=== PATIENT | female | born 1990 | race African-American/Black ===

== ENCOUNTER → 2019-05-01 | Outpatient (CLI) | payer SELFPAY ==
--- NOTE | 2019-05-01 17:15 | RADIOLOGY REPORT (SQ) ---
EXAM DESCRIPTION: U/S OB 14+ TRNABD 1GES W/O DOP COMPLETED DATE/TIME: 05/01/2019 3:41 pm REASON FOR STUDY: Z34.82 ENCOUNTER FOR SUPRVSN OF NORMAL , SECOND TRIMESTER Z34.82 ENCOUNT ER FOR SUPRVSN OF NORMAL , SECOND TRI COMPARISON: None. TECHNIQUE: Static and Dynamic grayscale imaging performed of gravid uterus using transabdominal appr oach. Additional selected color Doppler and spectral images recorded. All stored on PACS. LIMITATIONS: Limited exam due to positioning. FINDINGS: FETUSES SEEN:1 EGA: 19 weeks 5 days Calculated using BPD,FL,HC,AC documented on images. No discrepancy with clinica l dates. ROSARIO: 09/20/2019 EFW: 308 grams PERCENTILE: 24 persist YOANDY: 5.5 cm LVP PLACENTA: Fundal. PRESENTATION: Breech. ANATOMY: HEART RATE: 158 beats per minute. FOUR CHAMBER HEART: Visualized. THREE VESSEL CORD: Yes. CORD INSERTION: Visualized. KIDNEYS AND BLADDER: Visualized. Appear normal. STOMACH: Visualized. Appears normal. SPINE: Limited visualization. BRAIN AND LATERAL VENTRICLES: Visualized. Appear normal. OTHER: No other significant finding. MATERNAL ADNEXA: Maternal ovaries not visualized. CERVICAL LENGTH: 3.4 cm Closed. OTHER: No other significant finding. IMPRESSION: LIVING INTRAUTERINE . ESTIMATED GESTATIONAL AGE: 19 weeks 5 days NO VISUALIZED ANOMALIES. Trimester of : Second trimester - 13 weeks 1 day to 27 weeks 6 days. TECHNICAL DOCUMENTATION: JOB ID: [id number] [employer]- All Rights Reserved Reading location - IP/workstation name: [email or web address]
== END ==
LOC: RAD 14:50 → MERGE 15:00
PROVIDERS: ATTEND Midwife
DX: Z34.82 Encounter for supervision of other normal pregnancy, second trimester (principal); Z3A.19 19 weeks gestation of pregnancy
CPT/HCPCS: 76805

== ENCOUNTER 2019-08-10 14:33 | Outpatient (CLI) | payer MEDICAID ==
[2019-08-10 15:09] LABS: APPEARANCE,URINE SLIGHTLY-CLOUDY; BILIRUBIN,URINE NEGATIVE (NEGATIVE); COLOR,URINE YELLOW; GLUCOSE, URINE NEGATIVE (NEGATIVE); KETONES,URINE TRACE mg/dL (NEGATIVE); LEUKOCYTE ESTERASE,URINE MODERATE (NEGATIVE); NITRITE,URINE NEGATIVE (NEGATIVE); PROTEIN,URINE NEGATIVE (NEGATIVE); URINE SPECIFIC GRAVITY 1.014; UROBILINOGEN,URINE NEGATIVE mg/dL (<2.0)
[2019-08-10 15:18] LABS: URINE AMPHETAMINES SCREEN NEGATIVE; URINE BARBITURATES SCREEN NEGATIVE; URINE BENZODIAZEPINES SCREEN NEGATIVE; URINE COCAINE SCREEN NEGATIVE; URINE MARIJUANA (THC) SCREEN NEGATIVE; URINE METHADONE SCREEN NEGATIVE; URINE PHENCYCLIDINE SCREEN NEGATIVE
[2019-08-10 15:48] LABS: HEMATOCRIT 31.9 % (36.0-47.0); HEMOGLOBIN 10.8 g/dL (12.0-15.5); MEAN CORPUSCULAR HEMOGLOBIN 27.3 pg (27.0-33.4); MEAN CORPUSCULAR HGB CONC 33.8 g/dL (32.0-36.0); MEAN CORPUSCULAR VOLUME 81 fl (80-97); PLATELET COUNT 239 10^3/uL (150-450); RED BLOOD COUNT 3.94 10^6/uL (3.72-5.28); RED CELL DISTRIBUTION WIDTH 14.3 % (11.5-14.0); WHITE BLOOD COUNT 9.4 10^3/uL (4.0-10.5)
[2019-08-10 16:05] LABS: ALBUMIN 3.4 g/dL (3.5-5.0); ALKALINE PHOSPHATASE 105 U/L (38-126); ANION GAP 10 (5-19); ASPARTATE AMINO TRANSFERASE 22 U/L (14-36); BILIRUBIN,DIRECT 0.1 mg/dL (0.0-0.4); BILIRUBIN,TOTAL 0.8 mg/dL (0.2-1.3); BLOOD UREA NITROGEN 9 mg/dL (7-20); CALCIUM 9.2 mg/dL (8.4-10.2); CARBON DIOXIDE 24 mmol/L (22-30); CHLORIDE 104 mmol/L (98-107); POTASSIUM 3.9 mmol/L (3.6-5.0); TOTAL PROTEIN 6.8 g/dL (6.3-8.2)
[2019-08-10] MEDS ORDERED: ACETAMINOPHEN 325 MG TABLET PO PRN (16:09)
[2019-08-10] MEDS ORDERED: ACETAMINOPHEN 325 MG TABLET ONE (16:10)
[2019-08-10 16:11] LABS: GLUCOSE 68 mg/dL (75-110)
[2019-08-10 18:00] LABS: UR PRO/CREAT RATIO RESULT 0.1 mg/mg (0.0-0.2); URINE CREATININE 107.6 mg/dL (16-327); URINE PROTEIN 10.4 mg/dL (<12)
== END 2019-08-10 16:38 | disposition home or self-care (01) ==
LOC: LC 14:33
PROVIDERS: ATTEND Obstetrics & Gynecology
PROC: 4A1HXCZ Monitoring of Products of Conception, Cardiac Rate, External Approach (ICD-10-PCS; principal; 2019-08-10)
DX: O14.93 Unspecified pre-eclampsia, third trimester (principal); Z3A.33 33 weeks gestation of pregnancy
CPT/HCPCS: 59025; 36415; 83615; 84156; 82570; 85027; 80053; 81001; 80307; J3490

== ENCOUNTER 2019-09-11 16:42 | Inpatient (IN) | payer MEDICAID ==
[2019-09-11 18:13] LABS: APPEARANCE,URINE SLIGHTLY-CLOUDY; BILIRUBIN,URINE NEGATIVE (NEGATIVE); COLOR,URINE YELLOW; GLUCOSE, URINE NEGATIVE (NEGATIVE); KETONES,URINE 20 mg/dL (NEGATIVE); LEUKOCYTE ESTERASE,URINE TRACE (NEGATIVE); NITRITE,URINE NEGATIVE (NEGATIVE); PROTEIN,URINE 30 mg/dL (NEGATIVE); URINE SPECIFIC GRAVITY 1.011; UROBILINOGEN,URINE NEGATIVE mg/dL (<2.0)
[2019-09-11 18:17] LABS: HEMATOCRIT 34.3 % (36.0-47.0); HEMOGLOBIN 11.6 g/dL (12.0-15.5); MEAN CORPUSCULAR HEMOGLOBIN 28.4 pg (27.0-33.4); MEAN CORPUSCULAR HGB CONC 33.9 g/dL (32.0-36.0); MEAN CORPUSCULAR VOLUME 84 fl (80-97); PLATELET COUNT 223 10^3/uL (150-450); RED CELL DISTRIBUTION WIDTH 18.1 % (11.5-14.0); WHITE BLOOD COUNT 9.4 10^3/uL (4.0-10.5)
[2019-09-11 18:36] LABS: ALBUMIN 3.1 g/dL (3.5-5.0); ALKALINE PHOSPHATASE 132 U/L (38-126); ANION GAP 9 (5-19); ASPARTATE AMINO TRANSFERASE 19 U/L (14-36); BILIRUBIN,DIRECT 0.2 mg/dL (0.0-0.4); BILIRUBIN,TOTAL 0.6 mg/dL (0.2-1.3); BLOOD UREA NITROGEN 6 mg/dL (7-20); CALCIUM 9.2 mg/dL (8.4-10.2); CARBON DIOXIDE 23 mmol/L (22-30); CHLORIDE 104 mmol/L (98-107); GLUCOSE 96 mg/dL (75-110); POTASSIUM 3.9 mmol/L (3.6-5.0); TOTAL PROTEIN 6.2 g/dL (6.3-8.2); URIC ACID 4.8 mg/dL (2.5-6.2)
[2019-09-11 18:51] LABS: URINE AMPHETAMINES SCREEN NEGATIVE; URINE BARBITURATES SCREEN NEGATIVE; URINE BENZODIAZEPINES SCREEN NEGATIVE; URINE COCAINE SCREEN NEGATIVE; URINE MARIJUANA (THC) SCREEN NEGATIVE; URINE METHADONE SCREEN NEGATIVE; URINE PHENCYCLIDINE SCREEN NEGATIVE
[2019-09-11] MEDS ORDERED: RINGERS SOLUTION,LACTATED 1,000 ML IV ONE (19:28)
[2019-09-11] MEDS ORDERED: ACETAMINOPHEN 325 MG TABLET PO PRN (19:29)
[2019-09-11] MEDS ORDERED: MAG HYDROX/AL HYDROX/SIMETH SUSP 30 ML UDCUP PO PRN (19:29)
[2019-09-11] MEDS ORDERED: DINOPROSTONE 10 MG VAGINAL INSERT.SR PV ONE (19:29)
[2019-09-11] MEDS ORDERED: ZOLPIDEM TARTRATE 5 MG TABLET PO PRN (19:29)
[2019-09-11 19:38] LABS: UR PRO/CREAT RATIO RESULT 0.3 mg/mg (0.0-0.2); URINE CREATININE 83.3 mg/dL (16-327); URINE PROTEIN 23.3 mg/dL (<12)
[2019-09-11] MEDS ORDERED: HYDRALAZINE HCL INJ/PF 20 MG/1 ML SDV ONE (20:04)
[2019-09-11] MEDS ORDERED: LABETALOL HCL 200 MG TABLET PO ONE (20:06)
[2019-09-11] MEDS ORDERED: HYDRALAZINE HCL INJ/PF 20 MG/1 ML SDV IV ONE ×2 (20:07→21:25)
[2019-09-11] MEDS ORDERED: LABETALOL HCL 200 MG TABLET ONE (20:09)
[2019-09-11] MEDS ORDERED: DINOPROSTONE 10 MG VAGINAL INSERT.SR ONE (20:38)
[2019-09-12] MEDS: RINGERS SOLUTION,LACTATED 1,000 ML IV PRN ×2 (01:20→14:20)
--- NOTE | 2019-09-12 06:47 | Admission Physical ---
Datetime Report Generated by CPN: 09/12/2019 06:47 CURRENT ADMISSION Chief Complaint: Signs/Symptoms Gestational HTN Indication for Induction: Eclampsia-Mild Admit Impression : Term, Intrauterine ; No Active Labor; Intact Membranes; Induction of Labor Admit Plan: Admit to Unit; Initiate Labor Induction Protocol ALLERGIES Medication Allergies: No Medication Allergies: passion fruit (09/11/2019) Latex: No Latex Allergies Food Allergies: passion fruit OBSTETRICAL HISTORY EDC: 09/24/2019 00:00 : 2 Para: 1 Term: 1 : 0 SAB: 0 IAB: 0 Ectopic: 0 Livin Cesareans: 0 VBACs: 0 Multiple Births: 0 Gestational Diabetes: No Rh Sensitization: No Incompetent Cervix: No ESPERANZA: No Infertility: No ART Treatment: No Uterine Anomaly: No IUGR: No Hx Previous C/S: No Macrosomia: No Hx Loss/Stillborn: No PIH: No Hx : No Placenta Previa/Abruption: No Depression/PP Depression: No PTL/PROM: No Post Hemorrhage: No Current Procedures: Ultrasound; NST Obstetrical History Comments: G1- 38 weeks, nvd, developed pre-eclampsia day of induction; GDM SEE RECORDS Alcohol: No Marijuana : No Cocaine: No Other Illicit Drugs: No Cigarettes: Former Smoker. [id number] MEDICAL HISTORY Diabetes: No Diabetes Type: Gestational Diabetes Blood Transfusion: No Pulmonary Disease (Asthma, TB): No Breast Disease: No Hypertension: No Quality Control Manager Surgery: No Heart Disease: No Hosp/Surgery: Yes Autoimmune Disorder: No Anesthetic Complications: No Kidney Disease: No Abnormal Pap Smear: No Neuro/Epilepsy: No Psychiatric Disorders: No Other Medical Diseases: No Hepatitis/Liver Disease: No Significant Family History: No Varicosities/Phlebitis: No Trauma/Violence : No Thyroid Dysfunction: No Medical History Comments: anxiety disorder, sickle cell trait, 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 INFECTIOUS HISTORY Gonorrhea: No Genital Herpes: Yes Chlamydia: No Tuberculosis: No Syphilis: No Hepatitis: No HIV/AIDS Exposure: No Rash or Viral Illness: No HPV: No Infectious History Comments: pt states she has HSV, last outbreak 4 years ago, on valtrex PHYSICAL EXAM General: Normal HEENT: Normal Neurologic: Normal Thyroid: Deferred Heart: Normal Lungs: Normal Breast: Deferred Back: Normal Abdomen: Normal Genitourinary Exam: Normal Extremities: Normal DTRs: Normal Pelvic Type: Adequate Physical Exam Comments: pelvis proven to 7#2oz Vital Signs: Reviewed VAGINAL EXAM Dilatation: 0 Effacement: 0 Station: -3 Contraction Comments: q 3 MEMBRANES Membranes: Intact FETUS A EGA: 38.2 Monitoring: External US FHR- Baseline: 130 Variability: Moderate 6-25bpm Accelerations: 15X15 Decelerations: None FHR Category: Category I Presentation: Vertex Admit Comment: 29yo at 38+2ega presents for elevated BPs. She is noted tohave several severe range BPs and required treatment. Urine Pr:cr ratio 0.3. H/o preEW with 1st . Hypothyroid - no meds. H/o HSV on Valtrex since 34 wks. She reports outbreaks usually occur on leg. No prodrome and no lesion reported. Will perform SSE once cervidil removed. 24 hr UTP 08/15 was 384mg. occured on paragard - removed early . Admit for cervidil. Anticipate . PLANS FOR LABOR AND DELIVERY Labor and Delivery: None Pain Management: Natural Feeding Preference: Breast Benefit of Breast Feed Discussed: Yes Circumcision: N/A INFORMED CONSENT Informed Consent Obtained: Vaginal Delivery; Induction of Labor; Risks, Benefits and Alternatives Discussed Signature: with User ID: [email or web address]
[2019-09-12 07:36] LABS: HEMATOCRIT 33.7 % (36.0-47.0); HEMOGLOBIN 11.5 g/dL (12.0-15.5); MEAN CORPUSCULAR HEMOGLOBIN 28.3 pg (27.0-33.4); MEAN CORPUSCULAR HGB CONC 34.1 g/dL (32.0-36.0); MEAN CORPUSCULAR VOLUME 83 fl (80-97); PLATELET COUNT 199 10^3/uL (150-450); RED BLOOD COUNT 4.06 10^6/uL (3.72-5.28); RED CELL DISTRIBUTION WIDTH 18.6 % (11.5-14.0); WHITE BLOOD COUNT 8.5 10^3/uL (4.0-10.5)
[2019-09-12 08:02] LABS: ALBUMIN 2.9 g/dL (3.5-5.0); ALKALINE PHOSPHATASE 128 U/L (38-126); ANION GAP 8 (5-19); ASPARTATE AMINO TRANSFERASE 15 U/L (14-36); BILIRUBIN,TOTAL 0.6 mg/dL (0.2-1.3); BLOOD UREA NITROGEN 3 mg/dL (7-20); CALCIUM 8.8 mg/dL (8.4-10.2); CARBON DIOXIDE 21 mmol/L (22-30); CHLORIDE 107 mmol/L (98-107); POTASSIUM 3.7 mmol/L (3.6-5.0); TOTAL PROTEIN 5.5 g/dL (6.3-8.2); URIC ACID 4.6 mg/dL (2.5-6.2)
[2019-09-12 08:06] LABS: GLUCOSE 64 mg/dL (75-110)
[2019-09-12] MEDS ORDERED: OXYTOCIN/NORMAL SALINE 20 UNIT/1,000 ML RTUINJ IV PRN ×2 (09:54→21:13)
[2019-09-12] MEDS ORDERED: OXYTOCIN/NORMAL SALINE 20 UNIT/1,000 ML RTUINJ ONE (10:36)
[2019-09-12] MEDS ORDERED: OXYTOCIN 10 UNIT/ML VIAL ONE (10:36)
[2019-09-12] MEDS ORDERED: MISOPROSTOL 0.2 MG TABLET ONE (10:36)
[2019-09-12] MEDS ORDERED: LIDOCAINE 1% INJ-PF (10 MG/ML) 30 ML SDV ONE (10:36)
[2019-09-12] MEDS ORDERED: LABETALOL HCL 200 MG TABLET ONE (11:16)
[2019-09-12] MEDS ORDERED: HYDROMORPHONE HCL 2 MG TABLET ONE (20:42)
[2019-09-12] MEDS ORDERED: HYDROMORPHONE HCL INJ/PF 2 MG/ML AMPULE ONE (20:42)
[2019-09-12] MEDS ORDERED: GLYCERIN/WITCH HAZEL LEAF 1 EACH MED..WIPE TP PRN (21:13)
[2019-09-12] MEDS ORDERED: ACETAMINOPHEN WITH CODEINE #3 TABLET PO PRN ×2 (21:13)
[2019-09-12] MEDS ORDERED: BENZOCAINE/MENTHOL AEROSOL SPRAY 56 ML TOP PRN (21:13)
[2019-09-12] MEDS ORDERED: PSEUDOEPHEDRINE HCL 30 MG TABLET PO PRN (21:13)
[2019-09-12] MEDS ORDERED: PROMETHAZINE HCL 25 MG SUPP.RECT PR PRN (21:13)
[2019-09-12] MEDS ORDERED: DIPHENHYDRAMINE HCL 25 MG CAPSULE PO PRN (21:13)
[2019-09-12] MEDS ORDERED: MEASLES,MUMPS&RUBELLA VACC/PF 0.5 ML VIAL SUBCUT PRN (21:13)
[2019-09-12] MEDS ORDERED: ACETAMINOPHEN 650 MG SUPP.RECT PR PRN (21:13)
[2019-09-12] MEDS ORDERED: PROMETHAZINE HCL 25 MG TABLET PO PRN (21:13)
[2019-09-12] MEDS ORDERED: DIPH/PERTUSS(ACELL)/TETANUS VAC/PF 0.5 ML SYR (>=10YO) IM PRN (21:13)
[2019-09-12] MEDS ORDERED: MAGNESIUM HYDROXIDE SUSP 30 ML UDCUP PO PRN (21:13)
[2019-09-12] MEDS ORDERED: ZOLPIDEM TARTRATE 5 MG TABLET PO PRN (21:13)
[2019-09-12] MEDS ORDERED: NA PHOS,M-B/NA PHOS,DI-BA (ADULT) 133 ML ENEMA PR PRN (21:13)
[2019-09-12] MEDS ORDERED: DIBUCAINE 1% OINTMENT 28 GM TP PRN (21:13)
[2019-09-12] MEDS ORDERED: PROMETHAZINE HCL INJ 25 MG/1 ML VIAL IV PRN (21:13)
[2019-09-12] MEDS: IBUPROFEN 800 MG TABLET PO SCH (23:40)
[2019-09-12] MEDS: LABETALOL HCL 200 MG TABLET PO SCH (23:52)
[2019-09-13] MEDS: IBUPROFEN 800 MG TABLET PO SCH ×3 (06:30→22:16)
[2019-09-13] MEDS: LABETALOL HCL 200 MG TABLET PO SCH ×5 (06:35→22:17)
[2019-09-13 06:48] LABS: HEMATOCRIT 35.8 % (36.0-47.0); HEMOGLOBIN 12.1 g/dL (12.0-15.5); MEAN CORPUSCULAR HEMOGLOBIN 28.4 pg (27.0-33.4); MEAN CORPUSCULAR HGB CONC 33.8 g/dL (32.0-36.0); MEAN CORPUSCULAR VOLUME 84 fl (80-97); PLATELET COUNT 204 10^3/uL (150-450); RED BLOOD COUNT 4.26 10^6/uL (3.72-5.28); RED CELL DISTRIBUTION WIDTH 18.7 % (11.5-14.0); WHITE BLOOD COUNT 11.2 10^3/uL (4.0-10.5)
[2019-09-13] MEDS: DOCUSATE SODIUM 100 MG CAPSULE PO SCH ×2 (09:35→17:34)
[2019-09-13] MEDS: FAMOTIDINE 20 MG TABLET PO SCH (09:35)
[2019-09-13] MEDS: PRENATAL VITAMIN W DHA CAPSULE PO SCH (09:35)
[2019-09-13] MEDS: SENNOSIDES/DOCUSATE 8.6-50 MG 1 EACH TABLET PO SCH (09:35)
[2019-09-13] MEDS: FERROUS SULFATE 325 MG TABLET PO SCH ×2 (09:35→17:34)
--- NOTE | 2019-09-13 11:11 | PDOC PROGRESS REPORT ---
Subjective-OB Progress Note for:: 09/13/19 Physical Exam (OB) Vital Signs: Temp Pulse Resp BP Pulse Ox 98.1 F 97 18 149/73 H 98 09/13/19 08:00 09/13/19 08:00 09/13/19 08:00 09/13/19 08:00 09/13/19 08:00 Intake & Output 09/12/19 09/13/19 09/14/19 06:59 06:59 06:59 Intake Total 1000 400 Output Total 600 Balance 400 400 Weight 122.2 kg - PIH/Pre-Eclampsia DTR's: 2 + Clonus: Negative Headache: Absent Epigastric Pain: No Visual Changes: No - Lochia Lochia Amount: Scant < 10 ml Lochia Color: Rubra/Red - Abdomen Description: Tender, Soft Hernia Present: No Bowel Sounds: Normoactive Flatus Presence: Present Stool: No Fundal Description: Firm, Midline Fundal Height: u/u - u/2 Objective-Diagnostic Laboratory: 09/13/19 06:30 09/12/19 07:17 09/13/19 06:30 WBC 11.2 H RBC 4.26 Hgb 12.1 Hct 35.8 L MCV 84 MCH 28.4 MCHC 33.8 RDW 18.7 H Plt Count 204
[2019-09-14] MEDS: IBUPROFEN 800 MG TABLET PO SCH ×2 (05:13→13:39)
[2019-09-14] MEDS: LABETALOL HCL 200 MG TABLET PO SCH ×2 (05:14→13:39)
[2019-09-14 08:45] VITALS: BP 129/76
[2019-09-14] MEDS: SENNOSIDES/DOCUSATE 8.6-50 MG 1 EACH TABLET PO SCH (09:56)
[2019-09-14] MEDS: DOCUSATE SODIUM 100 MG CAPSULE PO SCH (09:56)
[2019-09-14] MEDS: FERROUS SULFATE 325 MG TABLET PO SCH (09:56)
[2019-09-14] MEDS: PRENATAL VITAMIN W DHA CAPSULE PO SCH (09:56)
[2019-09-14] MEDS: FAMOTIDINE 20 MG TABLET PO SCH ×2 (11:02→11:03)
--- NOTE | 2019-09-14 11:30 | PDOC DISCHARGE SUMMARY ---
Impression - Admit/DC Date/PCP Admission Date/Primary Care Provider: 09/11/19 19:36 BENJA WU MD Discharge Date: 09/14/19 - Discharge Diagnosis (1) Delivery normal Is this a current diagnosis for this admission?: Yes (2) Pre-eclampsia Is this a current diagnosis for this admission?: Yes (3) Is this a current diagnosis for this admission?: Yes - Additional Information Resuscitation Status: Full Code Discharge Diet: As Tolerated Discharge Activity: Activity As Tolerated, No Lifting Over 10 Pounds, No Lifting/Push/Pulling, No tub bath Referrals: BENJA WU MD [Primary Care Provider] - Prescriptions: Ibuprofen [Motrin 800 mg Tablet] 800 mg PO Q8HP PRN #60 tablet PRN Reason: pain scale 4 Labetalol HCl [Normodyne 200 mg Tablet] 200 mg PO Q8 #60 tablet Home Medications: Vitamin [-U Multiple Vitamin Capsule] 1 cap PO DAILY 08/10/19 Ibuprofen [Motrin 800 mg Tablet] 800 mg PO Q8HP PRN #60 tablet 09/14/19 Labetalol HCl [Normodyne 200 mg Tablet] 200 mg PO Q8 #60 tablet 09/14/19 HPI Reason(s) for Admission: Induction of Labor, PIH Procedures: NST Intrapartum Procedure(s): Spontaneous Vaginal Delivery Results Laboratory Results: WBC 11.2 10^3/uL (4.0-10.5) H 09/13/19 06:30 RBC 4.26 10^6/uL (3.72-5.28) 09/13/19 06:30 Hgb 12.1 g/dL (12.0-15.5) 09/13/19 06:30 Hct 35.8 % (36.0-47.0) L 09/13/19 06:30 MCV 84 fl (80-97) 09/13/19 06:30 MCH 28.4 pg (27.0-33.4) 09/13/19 06:30 MCHC 33.8 g/dL (32.0-36.0) 09/13/19 06:30 RDW 18.7 % (11.5-14.0) H 09/13/19 06:30 Plt Count 204 10^3/uL (150-450) 09/13/19 06:30 Sodium 135.9 mmol/L (137-145) L 09/12/19 07:17 Potassium 3.7 mmol/L (3.6-5.0) 09/12/19 07:17 Chloride 107 mmol/L (98-107) 09/12/19 07:17 Carbon Dioxide 21 mmol/L (22-30) L 09/12/19 07:17 Anion Gap 8 (5-19) 09/12/19 07:17 BUN 3 mg/dL (7-20) L 09/12/19 07:17 Creatinine 0.54 mg/dL (0.52-1.25) 09/12/19 07:17 Est GFR ( Amer) > 60 (>60) 09/12/19 07:17 Est GFR (MDRD) Non-Af > 60 (>60) 09/12/19 07:17 Glucose 64 mg/dL (75-110) L 09/12/19 07:17 Uric Acid 4.6 mg/dL (2.5-6.2) 09/12/19 07:17 Calcium 8.8 mg/dL (8.4-10.2) 09/12/19 07:17 Total Bilirubin 0.6 mg/dL (0.2-1.3) 09/12/19 07:17 Direct Bilirubin 0.0 mg/dL (0.0-0.4) 09/12/19 07:17 Neonat Total Bilirubin Not Reportable 09/12/19 07:17 Neonat Direct Bilirubin Not Reportable 09/12/19 07:17 Neonat Indirect Bili Not Reportable 09/12/19 07:17 AST 15 U/L (14-36) 09/12/19 07:17 ALT 9 U/L (<35) 09/12/19 07:17 Alkaline Phosphatase 128 U/L (38-126) H 09/12/19 07:17 Lactate Dehydrogenase 168 U/L (120-246) 09/12/19 07:17 Total Protein 5.5 g/dL (6.3-8.2) L 09/12/19 07:17 Albumin 2.9 g/dL (3.5-5.0) L 09/12/19 07:17 Urine Color YELLOW 09/11/19 17:00 Urine Appearance SLIGHTLY-CLOUDY 09/11/19 17:00 Urine pH 6.0 (5.0-9.0) 09/11/19 17:00 Ur Specific [place] 1.011 09/11/19 17:00 Urine Protein 30 mg/dL (NEGATIVE) H 09/11/19 17:00 Urine Glucose (UA) NEGATIVE mg/dL (NEGATIVE) 09/11/19 17:00 Urine Ketones 20 mg/dL (NEGATIVE) H 09/11/19 17:00 Urine Blood SMALL (NEGATIVE) H 09/11/19 17:00 Urine Nitrite NEGATIVE (NEGATIVE) 09/11/19 17:00 Urine Bilirubin NEGATIVE (NEGATIVE) 09/11/19 17:00 Urine Urobilinogen NEGATIVE mg/dL (<2.0) 09/11/19 17:00 Ur Leukocyte Esterase TRACE (NEGATIVE) H 09/11/19 17:00 Urine Creatinine 83.3 mg/dL (16-327) 09/11/19 17:52 Protein/Creatinin Ratio 0.3 mg/mg (0.0-0.2) H 09/11/19 17:52 Urine Total Protein 23.3 mg/dL (<12) H 09/11/19 17:52 Urine Ascorbic Acid NEGATIVE (NEGATIVE) 09/11/19 17:00 Urine Opiates Screen NEGATIVE 09/11/19 17:00 Urine Methadone Screen NEGATIVE 09/11/19 17:00 Ur Barbiturates Screen NEGATIVE 09/11/19 17:00 Ur Phencyclidine Scrn NEGATIVE 09/11/19 17:00 Ur Amphetamines Screen NEGATIVE 09/11/19 17:00 U Benzodiazepines Scrn NEGATIVE 09/11/19 17:00 Urine Cocaine Screen NEGATIVE 09/11/19 17:00 U Marijuana (THC) Screen NEGATIVE 09/11/19 17:00 RPR NONREACTIVE (NONREACTIVE) 09/11/19 20:21 Blood Type A POSITIVE 09/11/19 20:21 Antibody Screen NEGATIVE 09/11/19 20:21 Plan Plan of Treatment: f/u at [facility] 1 wk for BP check Time Spent: Less than 30 Minutes
--- NOTE | 2019-09-18 11:14 | Delivery Summary ---
Del Sum A-C Datetime Report Generated by CPN: 09/18/2019 11:13 DELIVERY PERSONNEL DELIVERY PERSONNEL: [id number] Delivery Doctor:: Melinda Larkin MD Labor and Delivery Nurse:: Rosi Ramsey RNC Nursery Nurse:: Laine Mello RN Ceramic Tile Setter/BREASTFEEDING PROGRAM COORDINATOR: Lincee Graham, ST MATERNAL INFORMATION Delivery Anesthesia: None Medications After Delivery: Pitocin Drip 20 Units/1000ml NSS Estimated Blood Loss (ml): 100 Delivery QBL: 100 Delivery QBL Comment: 100cc Maternal Complications: None Provider Comments: Called to patients room as she was complete, 2+ with urge to push. Patient pushed iwth one contraction and delivered a viable female infant. Head delivered without difficultyand the shoulders/rest of the body followed easily. Infant vigorous. Placed on maternal chest. Cord clamping delayed for 30 seconds. Both mother and infant stable condition. LABOR SUMMARY EDC: 09/24/2019 00:00 No. Babies in Womb: 1 Attempted: No Labor Anesthesia: None LABOR INFORMATION Onset of Labor: 09/12/2019 19:00 Complete Dilatation: 09/12/2019 20:21 Cervical Ripening Agents: Cervidil Oxytocin: Induction Group B Beta Strep: Neg Antibiotics # of Doses: 0 Antibiotics Time of Last Dose: 0 Name of Antibiotic Given: 0 Steroids Given: None Reason Steroids Not Administered: Not Applicable MEMBRANES Membranes Rupture Method: Artificial Rupture of Membranes: 09/12/2019 17:52 Length of Rupture (hr): 2.53 Amniotic Fluid Color: Clear Amniotic Fluid Amount: Moderate Amniotic Fluid Odor: None STAGES OF LABOR Stage 1 hr: 1 Stage 1 min: 21 Stage 2 hr: 0 Stage 2 min: 3 Stage 3 hr: 0 Stage 3 min: 12 Total Time in Labor hr: 1 Total Time in Labor min: 36 VAGINAL DELIVERY Laceration #1: Perineal Laceration Extension #1: Second Degree Laceration Repair: Yes Laceration Repair Note: Repaired with 2-0 chromic in a layered fashion Sponge Count Correct: Yes Sharps Count Correct: Yes BABY A INFORMATION Delivery Date/Time: 09/12/2019 20:24 Method of Delivery: Vaginal Nurse Controlled Delivery: No Born in Route : No : N/A Forceps: N/A Vacuum Extraction: N/A Shoulder Dystocia : No PRESENTATION/POSITION BABY A Presentation: Cephalic Cephalic Presentation: Vertex Vertex Position: Right Occipital Anterior Breech Presentation: N/A PLACENTA INFORMATION BABY A Placenta Delivery Time : 09/12/2019 20:36 Placenta Method of Delivery: Spontaneous Placenta Status: Delivered SCORES BABY A Heart Rate 1 min: >100 bpm Resp Effort 1 min: Good Cry Reflex Irritability 1 min: Cough or Sneeze or Pulls Away Muscle Tone 1 min: Active Motion Color 1 min: Body Pulpotio Bareas, Extremities Blue Resuscitation Effort 1 min: Tactile Stimulation SCORE 1 MIN: 9 Heart Rate 5 min: >100 bpm Resp Effort 5 min: Good Cry Reflex Irritability 5 min: Cough or Sneeze or Pulls Away Muscle Tone 5 min: Active Motion Color 5 min: Body Pulpotio Bareas, Extremities Blue Resuscitation Effort 5 min: Tactile Stimulation SCORE 5 MIN: 9 INFORMATION BABY A Gestational Age at Delivery: 38.2 Gestational Status: Early Term- 37- 38.6 Weeks Outcome : Liveborn Condition : Stable Sex: Female Infant Sex: Female IDENTIFICATION BABY A Verification Date/Time: 09/12/2019 21:12 ID Band Number: [id number] Mother's Name Verified: Yes RN Verifying Infant: C Andrews RN/D Belllennoxe RN WEIGHT/LENGTH BABY A Birthweight (gm): 3318 Weight (lb): 7 Infant Weight (oz): 5 Length (in): 21.00 Infant Length (cm): 53.34 CORD INFORMATION BABY A No. Cord Vessels: 3 Nuchal Cord : Around Neck x2, Loose Cord Blood Taken: Yes-For Storage (Mom's Blood type +) Suction: Mouth; Nose ASSESSMENT BABY A Infant Complications: None Physical Findings at Delivery: Within Normal Limits Infant Respirations: Appears Normal Skin to Skin: Yes Skin to Skin: Yes Pottery Machine Operator/ALS Called : No Care By: Siri Ramsey RN Transferred To: Remains with Mother
== END 2019-09-14 13:56 | disposition home or self-care (01) | DRG 807 ==
LOC: LC 16:42 → LR 19:36 → 2S 09-12 22:55
PROVIDERS: ADMIT Student in an Organized Health Care Education/Training Program; ATTEND Student in an Organized Health Care Education/Training Program
PROC: 10E0XZZ Delivery of Products of Conception, External Approach (ICD-10-PCS; principal; 2019-09-11)
PROC: 0KQM0ZZ Repair Perineum Muscle, Open Approach (ICD-10-PCS; 2019-09-11)
DX: O13.4 Gestational [pregnancy-induced] hypertension without significant proteinuria, complicating childbirth (principal); Z37.0 Single live birth; O69.81X0 Labor and delivery complicated by cord around neck, without compression, not applicable or unspecified; O99.02 Anemia complicating childbirth; D57.3 Sickle-cell trait; O14.94 Unspecified pre-eclampsia, complicating childbirth; O70.1 Second degree perineal laceration during delivery; Z3A.38 38 weeks gestation of pregnancy
CPT/HCPCS: 36415; 80053; 80307; 81005; 82570; 83615; 84156; 84550; 85027; 86592; 86850; 86900; 86901; J0360; J1170; J2590; J3490

== ENCOUNTER → 2020-02-01 | Outpatient (CLI) | payer SELFPAY ==
[2020-02-01 15:12] VITALS: BP 121/70
--- NOTE | 2020-02-01 15:12 | ER RDC ASSESSMENT REPORT ---
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 - Symptoms Subjective Fever([place] feverish): No Chills: No Muscule Aches: No Runny Nose: No Sore Throat: Yes Cough (New or worsening chronic cough): No Shortness of breath: No Nausea or Vomiting: Yes Headache: Yes Abdominal Pain: No Diarrhea(3 or more loose stools in last 24 hours): No - Do you have any of the following Chronic lung disease: Asthma or emphysema or COPD: No Cystic Fibrosis: No Diabetes: No High Blood Pressure: No Cardiovascular Disease: No Chronic Kidney Disease: No Chronic Liver Disease: No Chronic blood disorder like Sickle Cell Disease: No Weak immune system due to disease or medication: No Neurologic condition that limits movement: No Developmental delay - Moderate to Severe: No Recent (within past 2 weeks) or current : No Morbid Obesity (>100 pounds over ideal weight): No Obesity Comment: Height 5 feet 11 inches weight 220 pounds - Objective Temperature: 96.9 F Pulse Rate: 80 Respiratory Rate: 18 Blood Pressure: 121/70 O2 Sat by Pulse Oximetry: 96 Objective: Given above, testing performed: If Testing Performed: Test Specimen Type Sent to General - General Information source: Patient Notes: Patient here at [facility] for COVID testing 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 Patient reports started having symptoms yesterday with a sore throat nausea and headache. Patient's PCP is Dr. Pittman and has not followed up with him as of yet - Related Data Allergies/Adverse Reactions: passion fruit Allergy (Verified 09/11/19 16:52) Past Medical History - General Information source: Patient - Social History Smoking Status: Current Every Day Smoker - RePorts Vapes Physical Exam - General General appearance: Appears well, Alert In distress: None Notes: PHYSICAL EXAMINATION: GENERAL: Well-appearing and in no acute distress. HEAD: Atraumatic, normocephalic. EYES: sclera anicteric, conjunctiva are normal. ENT: nares patent. Moist mucous membranes. NECK: Normal range of motion, supple without lymphadenopathy LUNGS: CTAB and equal. No wheezes rales or rhonchi. Resp even and unlabored. Lung sounds clear HEART: Regular rate and rhythm without murmurs ABDOMEN: Soft, nontender, normal bowel sounds, no guarding. EXTREMITIES: No cyanosis. NEUROLOGICAL: Normal speech. PSYCH: Normal mood, normal affect. SKIN: Warm, Dry, normal turgor, Diagnostic Results Laboratory Results: Patient informed of negative rapid strep results. Pending strep culture pending cover testing results. Patient provided instructions regarding COVID to include: As a person under investigation for Covid 19, the [facility], division of public health advises you to adhere to the following guidance until your test results are reported to you. If your test result is positive, you will receive additional information from your provider and your local health department at that time. Remain at home until you are cleared by the health provider or public health authorities. Keep a log of visitors to your home, notify any visitors to your home of your isolation status. If you plan to move to a new address or leave the [facility], notify the local health department in your County. Call your doctor or seek care if you have an urgent medical need. Before seeking medical care, call ahead to get instructions from the provider before arriving at the medical office clinic or hospital. Notify them that you are being tested for the virus that causes Covid 19 so that arrangements can be made, as necessary, to prevent transmission to others in the healthcare setting. Next, notify the local health department in your [facility]. If a medical emergency arises and you need to call 911, inform the first responders that you are being tested for the virus that causes Covid 19. Next, notify the local health department in your [facility]. Patient Education/Counseling Counseling/Education: Patient presents with upper respiratory symptoms worrisome for possible Covid 19. Patient does not have emergency worring symptoms such as difficulty breathing, shortness of breath, chest pain, pressure, confusion or cyanosis. Patient appears suitable for discharge. Patient instructed to follow-up with PCP Dr. Orourke. To ED for persistent or worsening symptoms. Patient's vital signs are stable and patient is nontoxic in appearance. Good return precautions have been discussed with patient, patient verbalized understanding and is agreeable with discharge plan of care at this time. RDC Discharge - Discharge Condition: Stable Disposition: Home; Selfcare
== END ==
LOC: RDC 13:33
PROVIDERS: ATTEND Nurse Practitioner Family
DX: J06.9 Acute upper respiratory infection, unspecified (principal); Z20.828 Contact with and (suspected) exposure to other viral communicable diseases; J02.9 Acute pharyngitis, unspecified; R11.0 Nausea; R51 Headache; F17.290 Nicotine dependence, other tobacco product, uncomplicated; Z91.018 Allergy to other foods
CPT/HCPCS: 87070; 87880; 87635; C9803; 99201; 99211